=== PATIENT | male | born 1955 | race Two or more races ===

== ENCOUNTER 2022-09-02 09:44 | Day surgery (SDC) | payer OTHER ==
[2022-08-31 12:05] LABS: Basophils # (auto) 0.1 10 ^3/uL (0-0.2); Basophils % (auto) 0.7 % (0.0-2.0); Eosinophils # (auto) 0.2 10 ^3/uL (0-0.8); Eosinophils % (auto) 2.4 % (0.0-7.0); Hematocrit 40.2 % (41.0-53.0); Hemoglobin 13.3 g/dL (13.5-17.5); Lymphocytes # (auto) 2.5 10 ^3/uL (0.4-5.4); Lymphocytes % (auto) 29.1 % (10.0-50.0); Mean Corpuscular Hemoglobin 30.7 pg (28.0-32.0); Mean Corpuscular Hgb Conc. 33.2 g/dL (32.0-36.0); Mean Corpuscular Volume 92.6 fL (80.0-100.0); Monocytes # (auto) 0.6 10 ^3/uL (0-1.3); Neutrophils # (auto) 5.1 10 ^3/uL (1.6-8.6); Neutrophils % (auto) 60.8 % (37.0-80.0); Nucleated Red Blood Cells % 0.1 %; Red Blood Cells 4.34 10^6/uL (4.5-5.90); Red Cell Distribution Width 14.1 % (11.8-14.3); White Blood Cell 8.4 10^3/uL (4.4-10.8)
[2022-08-31 12:17] LABS: INR 1.07 (0.9-1.15); Partial Thromboplastin Time 26.6 sec (24.6-33.4)
[2022-08-31 12:39] LABS: Albumin 3.8 g/dL (3.4-5.0); BUN/Creatinine Ratio 21.1 (10.0-20.0); Bilirubin, Total 0.3 mg/dL (0.2-1.0); Calcium 9.2 mg/dL (8.5-10.1); Potassium 3.9 mmol/L (3.5-5.1); Total Protein 6.7 g/dL (6.4-8.2)
[~2022-09-02] VITALS: Ht 185.4 cm; Wt 93.4 kg
[~2022-09-02 09:44] MED LIST: AMLO1TAB23 PO; ASPI81CH59 PO; CYCL-837 PO; FENO134C19 PO; GABA300C PO; HYDR-4297 PO; IBUP-1456 PO; LEV50T PO; LISI40TA16 PO; METF-490 PO; METO25TA5 PO; PANT40TA2 PO; SITA100T7 PO; TAMS-35 PO; TRAM50TA2 PO
[2022-09-02] MEDS ORDERED: SODIUM CHLORIDE LOCK 10 ML ONE (11:48)
[2022-09-02] MEDS ORDERED: diphenhdrAMINE HCL 50 MG/1 ML VL ONE (11:48)
[2022-09-02] MEDS: fentaNYL CITRATE 100 MCG/2 ML VL ONE ×4 (11:54→12:12)
[2022-09-02] MEDS: MIDAZOLAM HCL 5 MG/ML-1ML VIAL ONE ×3 (11:54→12:03)
[2022-09-02] MEDS: MIDAZOLAM HCL 2MG/2ML 2ml VIAL (1mg/ml) ONE ×2 (12:08→12:12)
[2022-09-02 13:01] VITALS: BP 141/82
== END 2022-09-02 13:15 | disposition home or self-care (01) ==
LOC: GI 09:44
PROVIDERS: ATTEND Internal Medicine Gastroenterology
DX: Z12.11 Encounter for screening for malignant neoplasm of colon (principal); K57.30 Diverticulosis of large intestine without perforation or abscess without bleeding; K64.8 Other hemorrhoids; E11.9 Type 2 diabetes mellitus without complications; I10 Essential (primary) hypertension; Z79.899 Other long term (current) drug therapy; Z98.890 Other specified postprocedural states; Z79.84 Long term (current) use of oral hypoglycemic drugs
CPT/HCPCS: 36415; 80053; 82962; 85025; 85610; 85730; G0121; J1200; J2250; J3010; J7030